=== PATIENT | male | born 1995 | race Caucasian/White ===

== ENCOUNTER 2017-01-24 10:50 | Emergency (ER) | payer MEDICAID ==
[~2017-01-24] VITALS: Ht 182.9 cm; Wt 160.6 kg
[2017-01-24 10:56] VITALS: BP 170/94
[2017-01-24] MEDS ORDERED: KETOROLAC 30 MG/1 ML IM ONE (12:00)
[2017-01-24] MEDS ORDERED: METHOCARBAMOL 750 MG TABLET PO ONE (12:00)
[2017-01-24] MEDS ORDERED: KETOROLAC 30 MG/1 ML ONE (12:03)
[2017-01-24] MEDS ORDERED: METHOCARBAMOL 750 MG TABLET ONE (12:03)
== END 2017-01-24 13:23 | disposition home or self-care (01) ==
LOC: ED 13:17
DX: S39.012A Strain of muscle, fascia and tendon of lower back, initial encounter (principal); X58.XXXA Exposure to other specified factors, initial encounter; Y93.89 Activity, other specified; Y99.8 Other external cause status; Y92.89 Other specified places as the place of occurrence of the external cause
CPT/HCPCS: 96372; 99283; J1885